=== PATIENT | female | born 1930 | race African-American/Black ===

== ENCOUNTER 2019-11-22 14:56 | Inpatient (IN) | payer MEDICARE ==
[~2019-11-22] VITALS: Ht 160 cm; Wt 82.7 kg
[2019-11-22] MEDS ORDERED: ONDANSETRON HCL 4MG/2ML INJ IV STA (17:57)
[2019-11-22] MEDS ORDERED: SODIUM CHLORIDE 0.9% 1,000 ML IV ONE ×2 (17:57→20:15)
[2019-11-22 18:57] LABS: CHLORIDE 96 mEq/L (98-107)
[2019-11-22 19:00] LABS: BASOPHILS % 0.1 % (0.0-2.0); HEMATOCRIT. 38.1 % (36.0-48.0); HEMOGLOBIN. 12.7 g/dL (12.0-16.0); LYMPHOCYTES % 7.7 % (20.0-50.0); MEAN CORPUSCULAR HEMOGLOBIN 28.8 pg (28.0-32.0); MEAN CORPUSCULAR VOLUME 86.8 fL (81.0-99.0); MEAN PLATELET VOLUME 9.4 fl (7.4-10.4); MONOCYTES % 12.5 % (2.0-8.0); NEUTROPHILS % 79.7 % (40.0-76.0); PLATELET 232 x1000/uL (130-400); RED BLOOD CELL COUNT 4.39 mill/uL (4.2-5.4)
[2019-11-22] MEDS ORDERED: KETOROLAC 15MG/ML VIAL IV SCH (19:45)
[2019-11-22 20:06] LABS: CLARITY URINE TURBID (CLEAR); COLOR URINE ORANGE (YELLOW); KETONES URINE NEGATIVE (NEGATIVE); LEUKOCYTE ESTERASE URINE 3+ (NEGATIVE); NITRITE URINE POSITIVE (NEGATIVE); OCCULT BLOOD URINE 2+ (NEGATIVE); PROTEIN URINE 1+ (NEGATIVE); SPECIFIC GRAVITY URINE 1.023 (1.005-1.030)
[2019-11-22] MEDS ORDERED: PIPERACILLIN/TAZ 3.375G PREMIX 50 ML IV ONE (20:15)
[2019-11-22 20:29] LABS: INR 1.1; PARTIAL THROMBOPLASTIN TIME 32.7 sec (23.4-31.0)
[2019-11-22 23:24] VITALS: BP 131/68
[2019-11-23] VITALS (12 sets, daily range): BP systolic 102–142; BP diastolic 46–76
[2019-11-23] MEDS ORDERED: MORPHINE SULFATE 2 MG/ML CPJ (NOT FOR IM USE) IV PRN (01:15)
[2019-11-23] MEDS: DEXT 5%/0.45% NACL 1000ML 1,000 ML IV SCH ×2 (02:58→13:45)
[2019-11-23] MEDS: PIPERACILLIN/TAZOBACTAM 3.375 G in DEXT 5% WATER 100 ML IV SCH ×4 (04:29→22:51)
[2019-11-23] MEDS ORDERED: PIPERACILLIN/TAZOBACTAM 3.375 G/VIAL IV SCH (06:00)
[2019-11-23] MEDS ORDERED: CARV6.2548 PO (07:54)
[2019-11-23] MEDS ORDERED: AMLO10TA80 PO (07:54)
[2019-11-23] MEDS ORDERED: PRAV40TA58 PO (07:54)
[2019-11-23] MEDS ORDERED: METO25TA6 PO (07:54)
[2019-11-23] MEDS ORDERED: METO-396 PO (08:03)
[2019-11-23] MEDS: ENOXAPARIN 30MG/0.3ML SYR SUBCUT SCH ×2 (09:00→21:53)
[2019-11-23] MEDS: PANTOPRAZOLE SODIUM 40 MG/VIAL IV SCH (10:00)
[2019-11-23 11:48] LABS: BASOPHILS % 0.3 % (0.0-2.0); EOSINOPHILS % 0.7 % (0.0-5.0); HEMATOCRIT. 34.9 % (36.0-48.0); LYMPHOCYTES % 11.3 % (20.0-50.0); MEAN CORPUSCULAR HEMOGLOBIN 29.5 pg (28.0-32.0); MEAN CORPUSCULAR VOLUME 85.9 fL (81.0-99.0); MEAN PLATELET VOLUME 8.6 fl (7.4-10.4); MONOCYTES % 11.4 % (2.0-8.0); NEUTROPHILS % 76.3 % (40.0-76.0); PLATELET 237 x1000/uL (130-400); RED BLOOD CELL COUNT 4.06 mill/uL (4.2-5.4); RED CELL DISTRIBUTION WIDTH 14.9 % (11.6-14.6)
[2019-11-23 11:52] LABS: INR 1.1; PROTHROMBIN TIME 12.3 sec (9.6-11.0)
[2019-11-23 12:01] LABS: CHLORIDE 99 mEq/L (98-107)
[2019-11-23 15:56] LABS: CHLORIDE 101 mEq/L (98-107)
[2019-11-23] MEDS ORDERED: POTASSIUM CHLORIDE INJ 40 MEQ in DEXT 5% WATER 250 ML IV NR (16:00)
[2019-11-23 16:03] LABS: HDL CHOLESTEROL 36 mg/dL (40-59); LDL CHOLESTEROL 28 mg/dL (5-100)
[2019-11-23 16:05] LABS: T4 FREE 1.64 ng/dL (0.76-1.46)
[2019-11-24] VITALS (11 sets, daily range): BP systolic 103–143; BP diastolic 48–84
[2019-11-24] MEDS: PIPERACILLIN/TAZOBACTAM 3.375 G in DEXT 5% WATER 100 ML IV SCH ×4 (04:38→22:12)
[2019-11-24] MEDS: DEXT 5%/0.45% NACL 1000ML 1,000 ML IV SCH ×2 (04:38→14:45)
[2019-11-24] MEDS: ENOXAPARIN 30MG/0.3ML SYR SUBCUT SCH (09:30)
[2019-11-24] MEDS: PANTOPRAZOLE SODIUM 40 MG/VIAL IV SCH (09:30)
[2019-11-24 10:57] LABS: BASOPHILS % 0.3 % (0.0-2.0); HEMATOCRIT. 36.9 % (36.0-48.0); HEMOGLOBIN. 12.6 g/dL (12.0-16.0); LYMPHOCYTES % 11.2 % (20.0-50.0); MEAN CORPUSCULAR HEMOGLOBIN 29.5 pg (28.0-32.0); MEAN CORPUSCULAR VOLUME 86.4 fL (81.0-99.0); MEAN PLATELET VOLUME 8.3 fl (7.4-10.4); MONOCYTES % 11.8 % (2.0-8.0); NEUTROPHILS % 74.7 % (40.0-76.0); PLATELET 252 x1000/uL (130-400); RED BLOOD CELL COUNT 4.26 mill/uL (4.2-5.4); RED CELL DISTRIBUTION WIDTH 14.7 % (11.6-14.6)
[2019-11-24 11:18] LABS: CHLORIDE 103 mEq/L (98-107)
[2019-11-24 12:18] LABS: BG BASE EXCESS 3.9 mmol/L (-2.0-2.0); BG CARBOXYHEMOGLOBIN 0.2 % (0.5-1.5); BG DEOXYHEMOGLOBIN 7.1 % (0.0-5.0); BG FRACTION INSPIRED OXYGEN 21; BG HCO3 ACT 28.9 mmol/L (22.0-26.0); BG OXYGEN SATURATION 92.9 % (92.0-98.5); BG OXYHEMOGLOBIN 92.7 % (94.0-97.0); BG PCO2 45.1 mmHg (35.0-45.0); BG PH 7.424 (7.350-7.450); BG PO2 63.9 mmHg (75.0-100.0); BG SAMPLE SITE RIGHT RADIAL; BG TOTAL HEMOGLOBIN 11.9 g/dL (12.0-18.0); BG VENT MODE ROOM AIR
[2019-11-24] MEDS ORDERED: KCL 20MEQ/100ML PREMIX 100 ML IV SCH (13:00)
[2019-11-24] MEDS ORDERED: IOHEXOL-350 100 ML BOTTLE ONE (21:58)
[2019-11-25] VITALS (11 sets, daily range): BP systolic 104–154; BP diastolic 46–81
[2019-11-25] MEDS: PIPERACILLIN/TAZOBACTAM 3.375 G in DEXT 5% WATER 100 ML IV SCH ×4 (04:14→21:29)
[2019-11-25] MEDS: DEXT 5%/0.45% NACL 1000ML 1,000 ML IV SCH ×2 (04:15→15:45)
[2019-11-25 06:26] LABS: BASOPHILS % 0.4 % (0.0-2.0); EOSINOPHILS % 2.8 % (0.0-5.0); HEMATOCRIT. 32.9 % (36.0-48.0); HEMOGLOBIN. 11.2 g/dL (12.0-16.0); LYMPHOCYTES % 20.1 % (20.0-50.0); MEAN CORPUSCULAR HEMOGLOBIN 29.2 pg (28.0-32.0); MEAN CORPUSCULAR VOLUME 85.9 fL (81.0-99.0); MEAN PLATELET VOLUME 8.4 fl (7.4-10.4); MONOCYTES % 13.1 % (2.0-8.0); NEUTROPHILS % 63.6 % (40.0-76.0); PLATELET 253 x1000/uL (130-400); RED BLOOD CELL COUNT 3.84 mill/uL (4.2-5.4); RED CELL DISTRIBUTION WIDTH 14.7 % (11.6-14.6)
[2019-11-25 06:55] LABS: CHLORIDE 104 mEq/L (98-107)
[2019-11-25 07:06] LABS: PHOSPHORUS 2.5 mg/dL (2.5-4.9)
[2019-11-25] MEDS: ENOXAPARIN 40MG/0.4ML SYR SUBCUT SCH (09:41)
[2019-11-25] MEDS: PANTOPRAZOLE SODIUM 40 MG/VIAL IV SCH (09:41)
[2019-11-25] MEDS ORDERED: POTASSIUM CHLORIDE INJ 40 MEQ in DEXT 5% WATER 250 ML IV NR (13:30)
[2019-11-26] VITALS (9 sets, daily range): BP systolic 117–160; BP diastolic 61–88
[2019-11-26] MEDS: PIPERACILLIN/TAZOBACTAM 3.375 G in DEXT 5% WATER 100 ML IV SCH ×2 (03:30→10:46)
[2019-11-26] MEDS: DEXT 5%/0.45% NACL 1000ML 1,000 ML IV SCH (03:40)
[2019-11-26 07:28] LABS: HEMATOCRIT. 34.2 % (36.0-48.0); HEMOGLOBIN. 11.4 g/dL (12.0-16.0); MEAN CORPUSCULAR HEMOGLOBIN 28.9 pg (28.0-32.0); MEAN CORPUSCULAR VOLUME 86.3 fL (81.0-99.0); MEAN PLATELET VOLUME 8.8 fl (7.4-10.4); RED BLOOD CELL COUNT 3.96 mill/uL (4.2-5.4); RED CELL DISTRIBUTION WIDTH 14.6 % (11.6-14.6)
[2019-11-26 07:34] LABS: PLATELET 253 x1000/uL (130-400)
[2019-11-26 08:20] LABS: CHLORIDE 105 mEq/L (98-107)
[2019-11-26] MEDS: ENOXAPARIN 40MG/0.4ML SYR SUBCUT SCH (10:46)
[2019-11-26] MEDS: PANTOPRAZOLE SODIUM 40 MG/VIAL IV SCH (10:46)
[2019-11-26 10:58] LABS: PLATELET ESTIMATE NORMAL
== END 2019-11-26 16:02 | disposition home or self-care (01) | DRG 392 ==
LOC: ER 15:30 → 3WST 21:18 → ENRESERV 22:01
PROVIDERS: ADMIT Internal Medicine; ATTEND Internal Medicine
DX: K57.20 Diverticulitis of large intestine with perforation and abscess without bleeding (principal); N39.0 Urinary tract infection, site not specified; E46 Unspecified protein-calorie malnutrition; E87.1 Hypo-osmolality and hyponatremia; E87.6 Hypokalemia; I10 Essential (primary) hypertension; E86.0 Dehydration; B96.20 Unspecified Escherichia coli [E. coli] as the cause of diseases classified elsewhere; E66.9 Obesity, unspecified; K66.8 Other specified disorders of peritoneum; R09.02 Hypoxemia; Z68.32 Body mass index [BMI] 32.0-32.9, adult
CPT/HCPCS: 36415; 36600; 71045; 71275; 74018; 74176; 80048; 80053; 80061; 81003; 82375; 82805; 83036; 83605; 83735; 83880; 84100; 84439; 84443; 84484; 85025; 85379; 86850; 86900; 87077; 87186; 93005; 93970; 99291; C9113; J1650; J1885; J2405; J2543; J3480; J7030; J7060; Q9967

== ENCOUNTER 2020-03-15 11:24 | Inpatient (IN) | payer BC, MEDICARE ==
[~2020-03-15] VITALS: Ht 160 cm; Wt 75.3 kg
[~2020-03-15 11:24] MED LIST: AMLO10TA80 PO; CARV6.2548 PO; METO-396 PO; PRAV40TA58 PO
[2020-03-15] MEDS ORDERED: VALS1TAB75 PO (11:31)
[2020-03-15] MEDS ORDERED: SODIUM CHLORIDE 0.9% 500 ML IV ONE (13:37)
[2020-03-15] MEDS ORDERED: FAMOTIDINE 20MG/2ML VIAL IV STA (13:37)
[2020-03-15 13:43] LABS: BASOPHILS % 0.2 % (0.0-2.0); EOSINOPHILS % 0.1 % (0.0-5.0); LYMPHOCYTES % 13.7 % (20.0-50.0); MEAN CORPUSCULAR HEMOGLOBIN 27.9 pg (28.0-32.0); MEAN CORPUSCULAR VOLUME 83.8 fL (81.0-99.0); MEAN PLATELET VOLUME 8.9 fl (7.4-10.4); MONOCYTES % 8.4 % (2.0-8.0); NEUTROPHILS % 77.6 % (40.0-76.0); PLATELET 273 x1000/uL (130-400); RED BLOOD CELL COUNT 4.66 mill/uL (4.2-5.4)
[2020-03-15 13:49] LABS: CHLORIDE 98 mEq/L (98-107)
[2020-03-15 13:53] LABS: INR 1.1; PROTHROMBIN TIME 11.8 sec (9.6-11.0)
[2020-03-15 14:09] LABS: CLARITY URINE TURBID (CLEAR); COLOR URINE DARK YELLOW (YELLOW); KETONES URINE 3+ (NEGATIVE); LEUKOCYTE ESTERASE URINE 3+ (NEGATIVE); NITRITE URINE NEGATIVE (NEGATIVE); OCCULT BLOOD URINE 2+ (NEGATIVE); PROTEIN URINE 1+ (NEGATIVE); SPECIFIC GRAVITY URINE 1.027 (1.005-1.030)
[2020-03-15] MEDS ORDERED: CEFTRIAXONE 1 G PREMIX 50 ML IV ONE (14:30)
[2020-03-15] MEDS ORDERED: IOHEXOL-300 100 ML BOTTLE ONE (17:02)
[2020-03-15] MEDS ORDERED: DIATR MEGLU/DIATRIZOATE SOLN 120ML ONE (17:03)
[2020-03-15] MEDS ORDERED: ACETAMINOPHEN 650MG SUPP PR PRN (18:00)
[2020-03-15] MEDS ORDERED: IPRATROPIUM/ALBUTEROL 0.5-3(2.5)MG/3ML NEB HHN PRN (18:00)
[2020-03-15] MEDS ORDERED: ONDANSETRON HCL 4MG/2ML INJ IV PRN (18:00)
[2020-03-15] MEDS ORDERED: LORAZEPAM 2MG/ML CPJ IV PRN (18:00)
[2020-03-15] MEDS ORDERED: MORPHINE SULFATE 2 MG/ML CPJ (NOT FOR IM USE) IV PRN (18:00)
[2020-03-15] MEDS ORDERED: PIPERACILLIN/TAZOBACTAM 2.25 G in DEXTROSE 5% WATER 50 ML IV SCH (18:15)
[2020-03-15] MEDS ORDERED: PIPERACILLIN/TAZ 3.375G PREMIX 50 ML IV ONE (18:15)
[2020-03-15] MEDS ORDERED: VANCOMYCIN 1500MG in DEXTROSE 5% WATER 250ML IV NR (18:15)
[2020-03-15] MEDS: SODIUM CHLORIDE 0.9% 1,000 ML IV SCH (18:21)
[2020-03-15] MEDS ORDERED: PIPERACILLIN/TAZOBACTAM 3.375 G/VIAL IV SCH (22:00)
[2020-03-15 22:29] VITALS: BP 158/76
[2020-03-15 22:30] VITALS: BP 158/76
[2020-03-16] VITALS (10 sets, daily range): BP systolic 137–171; BP diastolic 59–94
[2020-03-16] MEDS ORDERED: PIPERACILLIN/TAZOBACTAM 2.25 G in DEXTROSE 5% WATER 50 ML IV SCH ×2
[2020-03-16] MEDS: PIPERACILLIN/TAZOBACTAM 2.25 G in DEXTROSE 5% WATER 50 ML IV SCH ×4 (01:00→17:09)
[2020-03-16] MEDS: SODIUM CHLORIDE 0.9% 1,000 ML IV SCH ×2 (01:47→17:08)
[2020-03-16 05:57] LABS: HEMATOCRIT. 32.4 % (36.0-48.0); HEMOGLOBIN. 10.9 g/dL (12.0-16.0); MEAN CORPUSCULAR HEMOGLOBIN 28.2 pg (28.0-32.0); MEAN CORPUSCULAR VOLUME 83.6 fL (81.0-99.0); MEAN PLATELET VOLUME 8.9 fl (7.4-10.4); PLATELET 201 x1000/uL (130-400); RED BLOOD CELL COUNT 3.88 mill/uL (4.2-5.4); RED CELL DISTRIBUTION WIDTH 14.8 % (11.6-14.6)
[2020-03-16 06:03] LABS: CHLORIDE 102 mEq/L (98-107)
[2020-03-16] MEDS ORDERED: POTASSIUM CHLORIDE 20MEQ TABLET SR PO SCH (10:15)
[2020-03-16] MEDS: CLONIDINE 0.1MG TABLET PO PRN (11:05)
[2020-03-16 13:00] LABS: PLATELET ESTIMATE NORMAL
[2020-03-16] MEDS ORDERED: VANCOMYCIN 1 G PREMIX 200 ML IV SCH ×2 (17:00)
[2020-03-16] MEDS: LOSARTAN POTASSIUM 25 MG TABLET PO SCH (17:09)
[2020-03-16 19:17] LABS: TOTAL IRON BINDING CAPACITY 243 ug/dL (250-450)
[2020-03-16 19:36] LABS: FOLIC ACID (FOLATE) SERUM 11.3 ng/mL (>5.38)
[2020-03-17] VITALS: BP 153/83
[2020-03-17] MEDS: PIPERACILLIN/TAZOBACTAM 2.25 G in DEXTROSE 5% WATER 50 ML IV SCH ×5 (00:21→23:23)
[2020-03-17 04:00] VITALS: BP 166/78
[2020-03-17] MEDS: SODIUM CHLORIDE 0.9% 1,000 ML IV SCH ×2 (05:15→14:36)
[2020-03-17 06:02] LABS: HEMATOCRIT. 31.1 % (36.0-48.0); HEMOGLOBIN. 10.5 g/dL (12.0-16.0); MEAN CORPUSCULAR HEMOGLOBIN 28.4 pg (28.0-32.0); MEAN CORPUSCULAR VOLUME 83.7 fL (81.0-99.0); MEAN PLATELET VOLUME 8.8 fl (7.4-10.4); PLATELET 198 x1000/uL (130-400); RED BLOOD CELL COUNT 3.71 mill/uL (4.2-5.4); RED CELL DISTRIBUTION WIDTH 14.8 % (11.6-14.6)
[2020-03-17 06:11] LABS: CHLORIDE 105 mEq/L (98-107)
[2020-03-17 08:00] VITALS: BP 174/86
[2020-03-17] MEDS: LOSARTAN POTASSIUM 25 MG TABLET PO SCH (08:47)
[2020-03-17 11:58] LABS: PLATELET ESTIMATE NORMAL
[2020-03-17 12:00] VITALS: BP 146/77
[2020-03-17] MEDS ORDERED: POTASSIUM CHLORIDE 20MEQ TABLET SR PO SCH (12:30)
[2020-03-17] MEDS ORDERED: KCL 20MEQ/100ML PREMIX 100 ML IV SCH (15:00)
[2020-03-17 16:00] VITALS: BP 170/70
[2020-03-17 19:55] VITALS: BP 147/72
[2020-03-17] MEDS: CLONIDINE 0.1MG TABLET PO PRN (22:15)
[2020-03-18] VITALS: BP 147/69
[2020-03-18] MEDS: SODIUM CHLORIDE 0.9% 1,000 ML IV SCH ×2 (01:19→12:42)
[2020-03-18 03:37] VITALS: BP 162/70
[2020-03-18] MEDS: PIPERACILLIN/TAZOBACTAM 2.25 G in DEXTROSE 5% WATER 50 ML IV SCH ×2 (05:02→12:41)
[2020-03-18 08:00] VITALS: BP 172/89
[2020-03-18] MEDS: LOSARTAN POTASSIUM 25 MG TABLET PO SCH (08:23)
[2020-03-18 14:00] VITALS: BP 142/84
[2020-03-18 15:20] VITALS: BP 142/84
== END 2020-03-18 16:30 | disposition home or self-care (01) | DRG 388 ==
LOC: ER 11:24 → 5EST 17:20 → EDBEDREQ 17:23 → EDBEDREQSVC 19:48 → EDBEDREQTM 19:48 → ENRESERV 20:07
PROVIDERS: ADMIT Internal Medicine; ATTEND Internal Medicine
DX: K56.699 Other intestinal obstruction unspecified as to partial versus complete obstruction (principal); K66.1 Hemoperitoneum; K57.32 Diverticulitis of large intestine without perforation or abscess without bleeding; N39.0 Urinary tract infection, site not specified; N28.1 Cyst of kidney, acquired; D64.9 Anemia, unspecified; D72.821 Monocytosis (symptomatic); E66.9 Obesity, unspecified; E87.6 Hypokalemia; I10 Essential (primary) hypertension; R82.71 Bacteriuria; B96.20 Unspecified Escherichia coli [E. coli] as the cause of diseases classified elsewhere; R82.4 Acetonuria; K37 Unspecified appendicitis; R31.9 Hematuria, unspecified; Z90.49 Acquired absence of other specified parts of digestive tract; Z68.29 Body mass index [BMI] 29.0-29.9, adult; Z79.899 Other long term (current) drug therapy
CPT/HCPCS: 36415; 71045; 74176; 74177; 78227; 80048; 80053; 81003; 82607; 82728; 82746; 83540; 83550; 83880; 84484; 85025; 87077; 87186; 93005; 97116; 97162; 99291; A9537; J0696; J2543; J3370; J3480; J3490; J7040; J7060; Q9963; Q9967

== ENCOUNTER 2020-05-05 10:04 | Emergency (ER) | payer BC ==
[~2020-05-05] VITALS: Ht 157.5 cm; Wt 69.0 kg
[~2020-05-05 10:04] MED LIST changes: -AMLO10TA80 PO; -CARV6.2548 PO; -METO-396 PO; +VALS1TAB75 PO
[2020-05-05] MEDS ORDERED: ONDANSETRON HCL 4MG/2ML INJ IV STA (10:20)
[2020-05-05] MEDS ORDERED: MORPHINE SULFATE 4 MG/ML CPJ (NOT FOR IM USE) IV STA (10:20)
[2020-05-05] MEDS ORDERED: SODIUM CHLORIDE 0.9% 1,000 ML IV ONE (10:30)
[2020-05-05 11:21] LABS: BASOPHILS % 0.4 % (0.0-2.0); EOSINOPHILS % 0.1 % (0.0-5.0); HEMATOCRIT. 37.3 % (36.0-48.0); HEMOGLOBIN. 12.8 g/dL (12.0-16.0); LYMPHOCYTES % 16.9 % (20.0-50.0); MEAN CORPUSCULAR HEMOGLOBIN 28.1 pg (28.0-32.0); MEAN PLATELET VOLUME 8.1 fl (7.4-10.4); MONOCYTES % 13.7 % (2.0-8.0); NEUTROPHILS % 68.9 % (40.0-76.0); PLATELET 350 x1000/uL (130-400); RED BLOOD CELL COUNT 4.55 mill/uL (4.2-5.4); RED CELL DISTRIBUTION WIDTH 15.1 % (11.6-14.6)
[2020-05-05 11:31] LABS: INR 1.2; PARTIAL THROMBOPLASTIN TIME 34.6 sec (23.4-31.0); PROTHROMBIN TIME 12.4 sec (9.6-11.0)
[2020-05-05 11:39] LABS: CHLORIDE 90 mEq/L (98-107)
[2020-05-05 11:50] LABS: CLARITY URINE CLOUDY (CLEAR); COLOR URINE DARK YELLOW (YELLOW); KETONES URINE 1+ (NEGATIVE); LEUKOCYTE ESTERASE URINE 3+ (NEGATIVE); NITRITE URINE NEGATIVE (NEGATIVE); OCCULT BLOOD URINE 2+ (NEGATIVE); PROTEIN URINE 1+ (NEGATIVE); SPECIFIC GRAVITY URINE 1.021 (1.005-1.030)
[2020-05-05] MEDS ORDERED: BACITRACIN 50,000 UNITS/VIAL ONE (12:35)
[2020-05-05] MEDS ORDERED: BUPIVACAINE HCL 0.5% (5MG/ML) 50ML ONE (12:35)
[2020-05-05] MEDS ORDERED: SODIUM CHLORIDE 0.9% INJ 10ML FLUSH IVF ONE (12:35)
[2020-05-05] MEDS ORDERED: PIPERACILLIN/TAZ 3.375G PREMIX 50 ML IV NR (14:45)
[2020-05-05 17:02] VITALS: BP 125/73
[2020-05-05] MEDS ORDERED: PIPERACILLIN/TAZOBACTAM 3.375 G in DEXT 5% WATER 100 ML IV SCH (18:00)
== END 2020-05-05 17:15 | disposition short-term general hospital (02) ==
LOC: ER 10:04 → EDBEDREQ 11:18 → ER 17:15 → CANBEDREQ 19:13
DX: K56.699 Other intestinal obstruction unspecified as to partial versus complete obstruction (principal); J98.11 Atelectasis; I10 Essential (primary) hypertension; E87.1 Hypo-osmolality and hyponatremia; N39.0 Urinary tract infection, site not specified; E78.5 Hyperlipidemia, unspecified; Z90.710 Acquired absence of both cervix and uterus
CPT/HCPCS: 36415; 71045; 74176; 80053; 81003; 83690; 83880; 84484; 85025; 85610; 85730; 86850; 86900; 86901; 87086; 87426; 93005; 96361; 96365; 96375; 99285; J2270; J2405; J2543; J7030; J3490